=== PATIENT | female | born 1990 ===

== ENCOUNTER 2016-10-02 00:35 | Inpatient (IN) | payer SELFPAY ==
[~2016-10-02] VITALS: Ht 157.5 cm; Wt 70.8 kg
[2016-10-02] MEDS ORDERED: WITCH HAZEL-GLYCERIN PAD TOP ONE (00:41)
[2016-10-02] MEDS ORDERED: LACT. RINGERS/OXYTOCIN 20UNITS 1,000 ML IV ONE (00:41)
[2016-10-02] MEDS ORDERED: PHISODERM TOP SOLN 240ML BTL TOP ONE (00:41)
[2016-10-02] MEDS ORDERED: DERMOPLAST 60ML BOTTLE TOP ONE (00:41)
[2016-10-02] MEDS ORDERED: LIDOCAINE 2%HCL (LOCAL ANESTH.) INJ 20ML MDV ONE (00:41)
[2016-10-02] MEDS ORDERED: METHYLERGONOVINE MALEATE 0.2 MG/ML AMP IM ONE (00:41)
[2016-10-02] MEDS ORDERED: LACT. RINGERS/OXYTOCIN 20UNITS 500 ML IV ONE (01:24)
[2016-10-02] MEDS ORDERED: LACTATED RINGER'S 1,000 ML IV SCH (01:24)
[2016-10-02] MEDS ORDERED: IBUPROFEN 600 MG TAB PO PRN (01:30)
[2016-10-02] MEDS ORDERED: NITROGLYCERIN 0.4 MG SL TAB SL PRN (01:30)
[2016-10-02] MEDS ORDERED: IBUPROFEN 600 MG TAB PO ONE (02:06)
[2016-10-02 04:00] LABS: INR 0.93 (0.9-1.15); Partial Thromboplastin Time 26.6 sec (22.64-33.71)
[2016-10-02 04:13] LABS: Calcium 8.6 mg/dL (8.5-10.1); Potassium 3.5 mmol/L (3.5-5.1)
[2016-10-02 04:17] LABS: Albumin 2.5 g/dL (3.4-5.0); BUN/Creatinine Ratio 16.4
[2016-10-02 04:19] LABS: Bilirubin, Total 0.3 mg/dL (0.2-1.0); Total Protein 6.5 g/dL (6.4-8.2)
[2016-10-02 04:38] LABS: Basophils # (auto) 0 uL; DEFINITIVE VIEW TRANSMISSION; Eosinophils # (auto) 0 uL; Eosinophils % (auto) 0.1 % (0.0-7.0); Hematocrit 34.3 % (36.0-46.0); Lymphocytes # (auto) 1.6 uL; Lymphocytes % (auto) 12.3 % (10.0-50.0); Mean Corpuscular Hemoglobin 26.9 pg (28.0-32.0); Mean Corpuscular Volume 83.8 fL (80.0-100.0); Mean Platelet Volume 8.3 fL (7.4-10.4); Monocytes # (auto) 0.5 uL; Monocytes % (auto) 3.5 % (0.0-12.0); Neutrophils % (auto) 84.1 % (37.0-80.0); Platelet Count (auto) 323 10^3/uL (140-450); White Blood Cell 13.1 10^3/uL (4.4-10.8)
[2016-10-02] MEDS: ACETAMINOPHEN 325 MG TAB PO PRN ×2 (05:00→18:03)
[2016-10-02] MEDS: IBUPROFEN 600 MG TAB PO PRN ×3 (07:10→21:46)
[2016-10-02 07:49] VITALS: BP 106/59
[2016-10-02 08:43] LABS: Urine Bilirubin Negative (Negative); Urine Color Yellow (Yellow); Urine Glucose Normal (Normal); Urine Ketone Negative (Negative); Urine Mucus FEW (None Seen); Urine Nitrite Negative (Negative); Urine RBC 705 /hpf (0 - 4); Urine Urobilinogen Normal (Negative); Urine pH 6.5 (5.0-8.0)
[2016-10-02 08:45] LABS: Urine Blood 3+ /uL (Negative)
[2016-10-02 12:15] VITALS: BP 110/65
[2016-10-03] VITALS (7 sets, daily range): BP systolic 99–124; BP diastolic 53–70
[2016-10-03] MEDS: ACETAMINOPHEN 325 MG TAB PO PRN (11:24)
[2016-10-03] MEDS: IBUPROFEN 600 MG TAB PO PRN ×2 (17:41→23:45)
[2016-10-04 03:35] VITALS: BP 99/72
[2016-10-04] MEDS ORDERED: TUBERCULIN PPD 5 UNIT/0.1 ML ID ONE (05:15)
[2016-10-04 06:55] VITALS: BP 95/58
[2016-10-04] MEDS ORDERED: PREN-96 PO (07:16)
[2016-10-04] MEDS ORDERED: TETANUS-DIPTH-ACEL PERTUSSIS 0.5ML SYRG IM ONE (10:00)
[2016-10-04 11:10] VITALS: BP 116/64
[2016-10-04] MEDS: IBUPROFEN 600 MG TAB PO PRN (11:26)
== END 2016-10-04 15:30 | disposition home or self-care (01) | DRG 775 ==
LOC: LDRP 00:35
PROVIDERS: ADMIT Specialist; ATTEND Specialist
PROC: 10E0XZZ Delivery of Products of Conception, External Approach (ICD-10-PCS; principal; 2016-10-02)
DX: O62.3 Precipitate labor (principal); Z3A.39 39 weeks gestation of pregnancy; Z37.0 Single live birth
CPT/HCPCS: 36415; 59025; 59409; 80053; 80307; 81001; 85025; 85610; 85730; 86592; 86762; 86850; 86900; 86901; 87340; 90715; 96361; 96366; 96372; J2590